=== PATIENT | female | born 1960 | race Hispanic/Latino ===

== ENCOUNTER 2018-06-21 11:57 | Emergency (ER) | payer BC ==
[2018-06-21] MEDS ORDERED: LABETALOL HCL 5 MG/ML 20ML VIAL IV ONE (12:46)
[2018-06-21 13:05] LABS: APPEARANCE,URINE Clear (CLEAR); BILIRUBIN,URINE Negative (NEGATIVE); COLOR,URINE Yellow (YELLOW); GLUCOSE, URINE (UA) >=1000 mg/dL (NEGATIVE); KETONES,URINE Negative (NEGATIVE); LEUKOCYTE ESTERASE ,URINE Negative (NEGATIVE); NITRATE,URINE Negative (NEGATIVE); OCCULT BLOOD,URINE Moderate (NEGATIVE); PH,URINE 5.5 (5.0-8.0); PROTEIN,URINE 300 (NEGATIVE); UROBILINOGEN,URINE 0.2 mg/dL (0.2-1.0)
[2018-06-21 13:06] LABS: BASOPHILS % (AUTO) 1.1 % (0.0-5.0); EOSINOPHILS % (AUTO) 1.8 % (0.0-8.0); HEMATOCRIT 38.6 % (36-48); LYMPHOCYTES % (AUTO) 34.2 % (21.0-51.0); MEAN CORPUSCULAR HEMOGLOBIN 29.3 pg (27.0-33.0); MEAN CORPUSCULAR HGB CONC 34.6 g/dL (32.0-36.0); MEAN CORPUSCULAR VOLUME 84.6 fL (79-99); MONOCYTES % (AUTO) 4.9 % (3.0-13.0); NUCLEATED RED BLOOD CELLS 0.1 % (0.0-0.19); PLATELET COUNT (AUTO) 292 K/uL (130-400); RED BLOOD CELL COUNT(AUTO) 4.56 MIL/uL (4.00-5.50); RED CELL DISTRIBUTION WIDTH 13.6 % (11.0-15.5); WHITE BLOOD COUNT (AUTO) 6.9 K/uL (4.8-10.8)
[2018-06-21 13:18] LABS: CREATININE 1.1 mg/dL (0.5-1.5); POTASSIUM 4.2 mmol/L (3.5-5.1)
[2018-06-21 13:24] LABS: BACTERIA,URINE Many /HPF (None Seen); RBC,URINE 0-1 /HPF (0-1); SQUAMOUS EPITHELIAL CELL,UR Rare /HPF (0-2); WBC,URINE 26-50 /HPF (0-1)
[2018-06-21 13:25] LABS: ALBUMIN 3.3 g/dL (3.5-5.0); BILIRUBIN,TOTAL 0.5 mg/dL (0.2-1.0); TOTAL PROTEIN, SERUM 7.4 g/dL (6.0-8.3)
[2018-06-21 13:35] LABS: INR 0.89 (0.85-1.15); PARTIAL THROMBOPLASTIN TIME 27.1 SEC (26.3-35.5); PROTHROMBIN TIME 9.4 SEC (9.6-11.6)
== END 2018-06-21 14:20 | disposition home or self-care (01) ==
LOC: EDH 11:57
DX: I10 Essential (primary) hypertension (principal); N39.0 Urinary tract infection, site not specified; E11.9 Type 2 diabetes mellitus without complications; R79.1 Abnormal coagulation profile; Z87.891 Personal history of nicotine dependence
CPT/HCPCS: 36415; 80053; 81001; 82550; 84484; 85025; 85610; 85730; 93005; 96374; 99285; J3490

== ENCOUNTER 2019-02-16 19:54 | Observation (INO) | payer BC ==
[2019-02-16 20:24] LABS: BASOPHILS % (AUTO) 0.9 % (0.0-5.0); EOSINOPHILS % (AUTO) 1.4 % (0.0-8.0); HEMATOCRIT 34.6 % (36-48); LYMPHOCYTES % (AUTO) 35.9 % (21.0-51.0); MEAN CORPUSCULAR HEMOGLOBIN 29.3 pg (27.0-33.0); MONOCYTES % (AUTO) 5.9 % (3.0-13.0); NEUTROPHILS % (AUTO) 55.9 % (40.0-77.0); PLATELET COUNT (AUTO) 305 K/uL (130-400); RED BLOOD CELL COUNT(AUTO) 4.02 MIL/uL (4.00-5.50); RED CELL DISTRIBUTION WIDTH 13.1 % (11.0-15.5)
[2019-02-16 20:37] LABS: INR 0.92 (0.85-1.15); PARTIAL THROMBOPLASTIN TIME 26.1 SEC (26.3-35.5); PROTHROMBIN TIME 9.7 SEC (9.6-11.6)
[2019-02-16 20:38] LABS: ALBUMIN 3.6 g/dL (3.5-5.0); BILIRUBIN,TOTAL 0.4 mg/dL (0.2-1.0); CREATININE 1.8 mg/dL (0.5-1.5); POTASSIUM 4.7 mmol/L (3.5-5.1); TOTAL PROTEIN, SERUM 7.4 g/dL (6.0-8.3)
[2019-02-16] MEDS ORDERED: SODIUM CHLORIDE 0.9% 1000ML 1,000 ML IV ONE (21:17)
[2019-02-16] MEDS ORDERED: INSULIN HUMULIN R 100 UNIT/ML 3ML ONE (21:19)
[2019-02-17 05:24] LABS: APPEARANCE,URINE Cloudy (CLEAR); BILIRUBIN,URINE Negative (NEGATIVE); COLOR,URINE Yellow (YELLOW); GLUCOSE, URINE (UA) >=1000 mg/dL (NEGATIVE); KETONES,URINE Negative (NEGATIVE); LEUKOCYTE ESTERASE ,URINE Trace (NEGATIVE); NITRATE,URINE Negative (NEGATIVE); OCCULT BLOOD,URINE Trace (NEGATIVE); PROTEIN,URINE POS 2+ mg/dL (NEGATIVE); UROBILINOGEN,URINE 0.2 mg/dL (0.2-1.0)
[2019-02-17 06:22] LABS: BACTERIA,URINE Many /HPF (None Seen); YEAST,URINE BUDDING Moderate /HPF (None Seen)
[2019-02-17 07:15] VITALS: BP 130/73
[2019-02-17] MEDS ORDERED: SODIUM CHLORIDE 0.9% 1000ML 1,000 ML IV SCH (08:00)
[2019-02-17] MEDS: CEFTRIAXONE SODIUM 1 GM IVP SCH (08:15)
[2019-02-17] MEDS ORDERED: CEFTRIAXONE SODIUM 1 GM ONE (08:29)
[2019-02-17] MEDS ORDERED: SODIUM CHLORIDE 0.9% 50 ML IV ONE (08:30)
[2019-02-17] MEDS ORDERED: SODIUM CHLORIDE 0.9% 1000ML 1,000 ML IV ONE (08:30)
[2019-02-17] MEDS ORDERED: INSULIN HUMULIN R 100 UNIT/ML 3ML ONE ×2 (08:43→12:48)
[2019-02-17] MEDS: INSULIN R PO SS1 SQ SCH ×3 (11:30→22:01)
--- NOTE | 2019-02-17 11:46 | NUR ---
HELENE Suazo met with pt and her grand daughter. Pt's daughter Laura lives with her. Son Jaret Ghosh [phone] is ER contact. pt works for [employer], independent, uses shower chair, patricia in home care services. Pt of Dr Krause has rx coverage. Denies dc needs, plan [place] Addendum: 02/17/19 at 1209 by KENDALL ALONSO Amended: Links added.
[2019-02-17] MEDS ORDERED: LOSA1TAB54 PO (17:36)
[2019-02-17 20:00] VITALS: BP 125/68
[2019-02-17] MEDS: FLUCONAZOLE 100 MG TAB PO SCH (21:28)
[2019-02-17 21:49] LABS: CREATININE 1.5 mg/dL (0.5-1.5)
[2019-02-18] VITALS: BP 115/68
[2019-02-18 04:00] VITALS: BP 110/63
[2019-02-18] MEDS: INSULIN R PO SS1 SQ SCH (06:19)
[2019-02-18] MEDS: CEFTRIAXONE SODIUM 1 GM IVP SCH (09:28)
[2019-02-18] MEDS: FLUCONAZOLE 100 MG TAB PO SCH (09:28)
--- NOTE | 2019-02-18 09:50 | NUR ---
INSTRUCTIONS DISCHARGE INSTRUCTIONS GIVEN TO PATIENT AND FAMILY USING TEACH BACK. NEW PRESCRIPTIONS PLACED IN PACKET ALONG WITH ALL PRINTED INFORMATION AND MD INSTRUCTIONS. IV REMOVED WITH TIP INTACT. DIRECT PRESSURE APPLIED UNTIL BLEEDING CONTROLLED THEN SITE COVERED WITH GAUZE AND SECURED WITH TAPE. F/U APPOINTMENT MADE. NO QUESTIONS OR CONCERNS VOICED.
== END 2019-02-18 09:52 | disposition home or self-care (01) ==
LOC: EDH 19:54 → EDHIP 02-17 07:00 → UNDOADMOB 02-17 07:00 → EDHIP 02-17 14:58 → 3CH 02-17 14:58 → EDHIP 02-17 19:00 → UNDODISOB 02-18 09:52
PROVIDERS: ADMIT Internal Medicine; ATTEND Internal Medicine
DX: G93.41 Metabolic encephalopathy (principal); I10 Essential (primary) hypertension; N39.0 Urinary tract infection, site not specified; E11.65 Type 2 diabetes mellitus with hyperglycemia; Z91.14 Patient's other noncompliance with medication regimen; Z79.4 Long term (current) use of insulin
CPT/HCPCS: 36415 ×2; 70450; 80048; 80053; 81001; 82550; 82948 ×5; 84484; 85025; 85610; 85730; 93005; 96372; 96374; 99284; G0378 ×15; J0696 ×2; J1815 ×5; J7030 ×2

== ENCOUNTER 2020-02-14 17:21 | Emergency (ER) | payer BC, OTHER ==
[~2020-02-14 17:21] MED LIST: LOSA1TAB54 PO
[2020-02-14] MEDS ORDERED: ACETAMINOPHEN 325 MG TAB ONE (17:47)
== END 2020-02-14 19:53 | disposition home or self-care (01) ==
LOC: EDH 17:21
DX: S83.8X1A Sprain of other specified parts of right knee, initial encounter (principal); S93.401A Sprain of unspecified ligament of right ankle, initial encounter; E11.9 Type 2 diabetes mellitus without complications; I10 Essential (primary) hypertension; Z90.49 Acquired absence of other specified parts of digestive tract; W18.39XA Other fall on same level, initial encounter; Y93.01 Activity, walking, marching and hiking; Y92.89 Other specified places as the place of occurrence of the external cause; Y99.8 Other external cause status
CPT/HCPCS: 73562; 73610

== ENCOUNTER 2020-10-12 21:35 | Inpatient (IN) | payer OTHER ==
[~2020-10-12] VITALS: Ht 167.6 cm; Wt 88.0 kg
[2020-10-12] MEDS ORDERED: LABETALOL 20 MG/4 ML DISP.SYRIN IV ONE ×2 (22:12→22:45)
[2020-10-12 22:15] LABS: BASOPHILS % (AUTO) 0.7 % (0.0-5.0); EOSINOPHILS % (AUTO) 1.8 % (0.0-8.0); HEMATOCRIT 34.6 % (36-48); LYMPHOCYTES % (AUTO) 38.4 % (21.0-51.0); MEAN CORPUSCULAR HEMOGLOBIN 26.8 pg (27.0-33.0); MEAN CORPUSCULAR HGB CONC 31.8 g/dL (32.0-36.0); MEAN CORPUSCULAR VOLUME 84.4 fL (79-99); MONOCYTES % (AUTO) 4.9 % (3.0-13.0); NEUTROPHILS % (AUTO) 53.9 % (40.0-77.0); PLATELET COUNT (AUTO) 393 K/uL (130-400); RED CELL DISTRIBUTION WIDTH 12.5 % (11.0-15.5); WHITE BLOOD COUNT (AUTO) 9.9 K/uL (4.8-10.8)
[2020-10-12 22:24] LABS: POTASSIUM 4.6 mmol/L (3.5-5.1)
[2020-10-12 22:29] LABS: ALBUMIN 2.8 g/dL (3.5-5.0); BILIRUBIN,TOTAL 0.2 mg/dL (0.2-1.0); TOTAL PROTEIN, SERUM 7.3 g/dL (6.0-8.3)
[2020-10-13 00:03] LABS: APPEARANCE,URINE Cloudy (CLEAR); BILIRUBIN,URINE Negative (NEGATIVE); COLOR,URINE Yellow (YELLOW); GLUCOSE, URINE (UA) 500 mg/dL (NEGATIVE); KETONES,URINE Negative (NEGATIVE); LEUKOCYTE ESTERASE ,URINE Small (NEGATIVE); NITRATE,URINE Positive (NEGATIVE); OCCULT BLOOD,URINE Small (NEGATIVE); PH,URINE 6.5 (5.0-8.0); PROTEIN,URINE >=1000 mg/dL (NEGATIVE); UROBILINOGEN,URINE 0.2 mg/dL (0.2-1.0)
[2020-10-13] MEDS ORDERED: ONDANSETRON HCL 4 MG/2 ML VIAL IV PRN (00:15)
[2020-10-13] MEDS ORDERED: VANCOMYCIN 1GM+NS 250ML 250 ML IV SCH (00:15)
[2020-10-13] MEDS ORDERED: LACTULOSE 20 GM/30 ML UDCUP PO PRN (00:15)
[2020-10-13] MEDS ORDERED: CEFAZOLIN SODIUM 1 GM VIAL IVP SCH (00:15)
[2020-10-13] MEDS ORDERED: VANCOMYCIN PROTOCOL PER PHARMACY IV PRN (00:15)
[2020-10-13] MEDS ORDERED: ACETAMINOPHEN 325 MG TAB PO PRN ×2 (00:15)
[2020-10-13] MEDS ORDERED: NITROGLYCERIN 1GM/1 INCH PACKET TD SCH (00:15)
[2020-10-13] MEDS ORDERED: SODIUM CHLORIDE 0.9% 1000ML 1,000 ML IV SCH (00:15)
[2020-10-13] MEDS ORDERED: LABETALOL 20 MG/4 ML DISP.SYRIN IV PRN (00:15)
[2020-10-13 00:19] LABS: BACTERIA,URINE Many /HPF (None Seen); MUCUS,URINE Rare LPF (None Seen); SQUAMOUS EPITHELIAL CELL,UR Moderate /HPF (0-2); YEAST,URINE BUDDING None Seen /HPF (None Seen)
[2020-10-13 00:58] LABS: HEMOGLOBIN A1C 10.4 % (4.0-6.0)
[2020-10-13] MEDS ORDERED: CEFAZOLIN SODIUM 1 GM VIAL ONE ×3 (01:04→16:14)
[2020-10-13] MEDS ORDERED: VANCOMYCIN 1GM+NS 250ML 250 ML IV ONE (01:05)
[2020-10-13] MEDS ORDERED: NITROGLYCERIN 1GM/1 INCH PACKET TD ONE ×3 (01:05→16:15)
[2020-10-13] MEDS ORDERED: SODIUM CHLORIDE 0.9% 1000ML 1,000 ML IV ONE (04:22)
[2020-10-13] MEDS: INSULIN LISPRO 100 UNIT/ML 3ML SQ SCH ×2 (07:30→11:30)
[2020-10-13] MEDS ORDERED: ENOXAPARIN SODIUM 40 MG/0.4 ML SYRINGE SQ ONE ×2 (08:13→12:47)
[2020-10-13] MEDS ORDERED: ASPIRIN 81MG TAB.CHEW ONE (08:13)
[2020-10-13] MEDS ORDERED: FAMOTIDINE/PF 20 MG/2 ML VIAL IV ONE ×3 (08:14→19:48)
[2020-10-13] MEDS ORDERED: METOPROLOL TARTRATE 25 MG TAB ONE ×3 (08:29→19:47)
[2020-10-13] MEDS: FAMOTIDINE/PF 20 MG/2 ML VIAL IV SCH (09:00)
[2020-10-13] MEDS: METOPROLOL TARTRATE 25 MG TAB PO SCH (09:00)
[2020-10-13] MEDS: ENOXAPARIN SODIUM 40 MG/0.4 ML SYRINGE SQ SCH (09:00)
[2020-10-13] MEDS: NIFEDIPINE 10 MG CAP PO SCH ×2 (09:00→13:00)
[2020-10-13] MEDS ORDERED: ASPIRIN 325 MG TABLET PO SCH (09:00)
[2020-10-13] MEDS ORDERED: NIFEDIPINE 10 MG CAP ONE ×2 (11:07→18:49)
[2020-10-13] MEDS ORDERED: ASCORBIC ACID 500 MG TAB ONE (12:46)
[2020-10-13] MEDS ORDERED: ERGOCALCIFEROL (VITAMIN D2) 50,000 UNIT CAPSULE ONE (12:46)
[2020-10-13] MEDS ORDERED: ZINC SULFATE 220 CAPSULE ONE (12:46)
[2020-10-13] MEDS ORDERED: CEFTRIAXONE SODIUM 1 GM ONE (12:47)
[2020-10-13] MEDS ORDERED: DOXYCYCLINE 100MG+NS 250ML 250 ML IV ONE (12:47)
[2020-10-13] MEDS ORDERED: INSULIN HUMULIN R 100 UNIT/ML 3ML ONE (12:48)
[2020-10-13] MEDS ORDERED: COMPOUND IV REFRIGERATED 1 EACH IVSOLN MISC PRN (14:30)
[2020-10-13] MEDS ORDERED: VANCOMYCIN 750MG + NS 250 ML IV SCH ×2 (15:00)
[2020-10-13] MEDS: INSULIN GLARGINE 100 UNITS/ML 10 ML VIAL SQ SCH (21:00)
[2020-10-14] MEDS ORDERED: CEFTRIAXONE SODIUM 1 GM IVP SCH (08:00)
[2020-10-14] MEDS: MEROPENEM 500 MG VIAL IVP SCH ×3 (08:30→23:10)
[2020-10-14] MEDS ORDERED: ENOXAPARIN SODIUM 40 MG/0.4 ML SYRINGE SQ ONE (08:59)
[2020-10-14] MEDS ORDERED: MEROPENEM 1 GM VIAL ONE (08:59)
[2020-10-14] MEDS ORDERED: FAMOTIDINE/PF 20 MG/2 ML VIAL IV ONE (09:00)
[2020-10-14] MEDS: NIFEDIPINE 10 MG CAP PO SCH ×2 (09:00→14:15)
[2020-10-14] MEDS: METOPROLOL TARTRATE 25 MG TAB PO SCH (09:00)
[2020-10-14] MEDS: ENOXAPARIN SODIUM 40 MG/0.4 ML SYRINGE SQ SCH (09:00)
[2020-10-14] MEDS: FAMOTIDINE/PF 20 MG/2 ML VIAL IV SCH ×2 (09:00→20:38)
[2020-10-14] MEDS ORDERED: METOPROLOL TARTRATE 25 MG TAB ONE (09:00)
[2020-10-14] MEDS ORDERED: NIFEDIPINE 10 MG CAP ONE (09:37)
[2020-10-14] MEDS ORDERED: NEOMY SULF/BACITRA/POLYMYXIN B 1 EACH PACKET TP ONE (10:00)
[2020-10-14 10:44] LABS: BASOPHILS % (AUTO) 0.7 % (0.0-5.0); EOSINOPHILS % (AUTO) 1.5 % (0.0-8.0); HEMATOCRIT 34.3 % (36-48); LYMPHOCYTES % (AUTO) 20.2 % (21.0-51.0); MEAN CORPUSCULAR HEMOGLOBIN 27.3 pg (27.0-33.0); MEAN CORPUSCULAR HGB CONC 32.4 g/dL (32.0-36.0); MEAN CORPUSCULAR VOLUME 84.5 fL (79-99); MONOCYTES % (AUTO) 3.8 % (3.0-13.0); NEUTROPHILS % (AUTO) 73.6 % (40.0-77.0); PLATELET COUNT (AUTO) 373 K/uL (130-400); RED BLOOD CELL COUNT(AUTO) 4.06 MIL/uL (4.00-5.50); RED CELL DISTRIBUTION WIDTH 12.6 % (11.0-15.5); WHITE BLOOD COUNT (AUTO) 8.2 K/uL (4.8-10.8)
[2020-10-14 10:59] LABS: CREATININE 1.9 mg/dL (0.5-1.5); POTASSIUM 4.4 mmol/L (3.5-5.1)
[2020-10-14] MEDS: INSULIN LISPRO 100 UNIT/ML 3ML SQ SCH ×2 (11:30→16:33)
[2020-10-14 11:53] VITALS: BP 148/80
[2020-10-14] MEDS: HONEY 1 APPL/ML TUBE TP SCH (15:30)
[2020-10-14 15:49] VITALS: BP 95/52
[2020-10-14 19:30] VITALS: BP 133/73
[2020-10-14] MEDS: INSULIN GLARGINE 100 UNITS/ML 10 ML VIAL SQ SCH (20:39)
[2020-10-15] VITALS (7 sets, daily range): BP systolic 141–165; BP diastolic 75–88
[2020-10-15] MEDS: INSULIN LISPRO 100 UNIT/ML 3ML SQ SCH ×3 (05:43→16:44)
[2020-10-15 05:52] LABS: BASOPHILS % (AUTO) 0.9 % (0.0-5.0); EOSINOPHILS % (AUTO) 1.9 % (0.0-8.0); HEMATOCRIT 30.3 % (36-48); LYMPHOCYTES % (AUTO) 35.2 % (21.0-51.0); MEAN CORPUSCULAR HEMOGLOBIN 27.3 pg (27.0-33.0); MEAN CORPUSCULAR HGB CONC 32.3 g/dL (32.0-36.0); MEAN CORPUSCULAR VOLUME 84.4 fL (79-99); MONOCYTES % (AUTO) 6.3 % (3.0-13.0); NEUTROPHILS % (AUTO) 55.5 % (40.0-77.0); PLATELET COUNT (AUTO) 350 K/uL (130-400); RED BLOOD CELL COUNT(AUTO) 3.59 MIL/uL (4.00-5.50); RED CELL DISTRIBUTION WIDTH 12.7 % (11.0-15.5); WHITE BLOOD COUNT (AUTO) 8.1 K/uL (4.8-10.8)
[2020-10-15 06:04] LABS: CREATININE 1.8 mg/dL (0.5-1.5); POTASSIUM 4.5 mmol/L (3.5-5.1)
[2020-10-15 08:20] LABS: INR 0.98 (0.85-1.15); PROTHROMBIN TIME 10.7 SEC (9.6-11.6)
[2020-10-15 08:21] LABS: PARTIAL THROMBOPLASTIN TIME 26.7 SEC (26.3-35.5)
[2020-10-15] MEDS: FAMOTIDINE/PF 20 MG/2 ML VIAL IV SCH ×2 (09:37→21:33)
[2020-10-15] MEDS: MEROPENEM 500 MG VIAL IVP SCH ×2 (09:37→16:43)
[2020-10-15] MEDS: ENOXAPARIN SODIUM 40 MG/0.4 ML SYRINGE SQ SCH (09:38)
[2020-10-15] MEDS: NIFEDIPINE 10 MG CAP PO SCH (09:38)
[2020-10-15] MEDS: HONEY 1 APPL/ML TUBE TP SCH (09:39)
[2020-10-15] MEDS: INSULIN GLARGINE 100 UNITS/ML 10 ML VIAL SQ SCH (21:35)
[2020-10-16] MEDS: MEROPENEM 500 MG VIAL IVP SCH ×3 (00:25→16:56)
[2020-10-16 03:34] VITALS: BP 160/80
[2020-10-16 06:02] LABS: BASOPHILS % (AUTO) 0.7 % (0.0-5.0); EOSINOPHILS % (AUTO) 2.1 % (0.0-8.0); HEMATOCRIT 30.4 % (36-48); MEAN CORPUSCULAR HGB CONC 31.6 g/dL (32.0-36.0); MEAN CORPUSCULAR VOLUME 85.6 fL (79-99); MONOCYTES % (AUTO) 6.9 % (3.0-13.0); NEUTROPHILS % (AUTO) 57.9 % (40.0-77.0); PLATELET COUNT (AUTO) 330 K/uL (130-400); RED BLOOD CELL COUNT(AUTO) 3.55 MIL/uL (4.00-5.50); RED CELL DISTRIBUTION WIDTH 12.5 % (11.0-15.5)
[2020-10-16 06:18] LABS: CREATININE 1.9 mg/dL (0.5-1.5); POTASSIUM 5.2 mmol/L (3.5-5.1)
[2020-10-16] MEDS: INSULIN LISPRO 100 UNIT/ML 3ML SQ SCH ×3 (06:39→16:57)
[2020-10-16 08:20] VITALS: BP 189/98
[2020-10-16] MEDS: ENOXAPARIN SODIUM 40 MG/0.4 ML SYRINGE SQ SCH (09:20)
[2020-10-16] MEDS: FAMOTIDINE/PF 20 MG/2 ML VIAL IV SCH ×2 (09:20→20:18)
[2020-10-16] MEDS: NIFEDIPINE 10 MG CAP PO SCH (09:20)
[2020-10-16] MEDS: HONEY 1 APPL/ML TUBE TP SCH (09:21)
[2020-10-16 11:26] VITALS: BP 139/72
[2020-10-16 16:00] VITALS: BP 151/87
[2020-10-16 19:36] VITALS: BP 132/74
[2020-10-16] MEDS: INSULIN GLARGINE 100 UNITS/ML 10 ML VIAL SQ SCH (21:00)
[2020-10-16 23:52] VITALS: BP 133/59
[2020-10-17] MEDS: MEROPENEM 500 MG VIAL IVP SCH ×2 (00:14→09:39)
[2020-10-17 04:06] VITALS: BP 145/78
[2020-10-17 04:50] LABS: BASOPHILS % (AUTO) 0.9 % (0.0-5.0); EOSINOPHILS % (AUTO) 2.5 % (0.0-8.0); HEMATOCRIT 32.4 % (36-48); LYMPHOCYTES % (AUTO) 41.4 % (21.0-51.0); MEAN CORPUSCULAR HGB CONC 31.8 g/dL (32.0-36.0); MONOCYTES % (AUTO) 7.4 % (3.0-13.0); NEUTROPHILS % (AUTO) 47.4 % (40.0-77.0); PLATELET COUNT (AUTO) 355 K/uL (130-400); RED BLOOD CELL COUNT(AUTO) 3.81 MIL/uL (4.00-5.50); RED CELL DISTRIBUTION WIDTH 12.8 % (11.0-15.5); WHITE BLOOD COUNT (AUTO) 8.1 K/uL (4.8-10.8)
[2020-10-17 05:06] LABS: CREATININE 1.8 mg/dL (0.5-1.5); POTASSIUM 4.9 mmol/L (3.5-5.1)
[2020-10-17] MEDS: INSULIN LISPRO 100 UNIT/ML 3ML SQ SCH ×2 (06:34→11:58)
[2020-10-17 08:00] VITALS: BP 149/80
[2020-10-17] MEDS: FAMOTIDINE/PF 20 MG/2 ML VIAL IV SCH (09:39)
[2020-10-17] MEDS: NIFEDIPINE 10 MG CAP PO SCH (09:40)
[2020-10-17] MEDS: ENOXAPARIN SODIUM 40 MG/0.4 ML SYRINGE SQ SCH (09:41)
[2020-10-17] MEDS: HONEY 1 APPL/ML TUBE TP SCH (09:47)
[2020-10-17 12:06] VITALS: BP 160/90
[2020-10-17] MEDS ORDERED: LEVO500T89 PO (15:54)
[2020-10-17] MEDS ORDERED: NIFE10 PO (15:54)
[2020-10-17 16:00] VITALS: BP 128/95
[2020-10-17] MEDS ORDERED: HONE44PA TP (16:21)
== END 2020-10-17 18:44 | disposition home or self-care (01) | DRG 300 ==
LOC: EDH 21:35 → EDHIP 21:36 → 4DH 10-14 11:52
PROVIDERS: ADMIT Internal Medicine; ATTEND Internal Medicine
DX: E11.51 Type 2 diabetes mellitus with diabetic peripheral angiopathy without gangrene (principal); I16.1 Hypertensive emergency; N39.0 Urinary tract infection, site not specified; Z16.24 Resistance to multiple antibiotics; L03.90 Cellulitis, unspecified; N17.9 Acute kidney failure, unspecified; N18.4 Chronic kidney disease, stage 4 (severe); E11.621 Type 2 diabetes mellitus with foot ulcer; E11.65 Type 2 diabetes mellitus with hyperglycemia; N18.30 Chronic kidney disease, stage 3 unspecified; E11.21 Type 2 diabetes mellitus with diabetic nephropathy; L97.519 Non-pressure chronic ulcer of other part of right foot with unspecified severity; I10 Essential (primary) hypertension; E78.5 Hyperlipidemia, unspecified; I45.10 Unspecified right bundle-branch block; I25.10 Atherosclerotic heart disease of native coronary artery without angina pectoris; E11.22 Type 2 diabetes mellitus with diabetic chronic kidney disease; H54.8 Legal blindness, as defined in USA; E11.40 Type 2 diabetes mellitus with diabetic neuropathy, unspecified; B96.20 Unspecified Escherichia coli [E. coli] as the cause of diseases classified elsewhere; Z79.4 Long term (current) use of insulin; Z79.899 Other long term (current) drug therapy; Z91.14 Patient's other noncompliance with medication regimen; Z91.19 Patient's noncompliance with other medical treatment and regimen; Z82.5 Family history of asthma and other chronic lower respiratory diseases; Z83.3 Family history of diabetes mellitus; Z82.49 Family history of ischemic heart disease and other diseases of the circulatory system
CPT/HCPCS: 36415; 73630; 73718; 80048; 80053; 81001; 82948; 83036; 84132; 84145; 84484; 85025; 85610; 85651; 85730; 86140; 87077; 87088; 87186; 93005; 93925; 97039; G0378; J0690; J0696; J1650; J1815; J2185; J3370; J3490; J7030; J7050

== ENCOUNTER 2021-04-15 12:33 | Emergency (ER) | payer OTHER ==
[~2021-04-15] VITALS: Ht 167.6 cm; Wt 83.5 kg
[~2021-04-15 12:33] MED LIST changes: +HONE44PA TP; +LEVO500T89 PO; -LOSA1TAB54 PO; +NIFE10 PO
[2021-04-15 12:55] VITALS: BP 214/107
[2021-04-15] MEDS ORDERED: LABETALOL 20MG VIAL IV ONE ×2 (13:30→16:00)
[2021-04-15 13:32] LABS: BASOPHILS % (AUTO) 0.7 % (0.0-5.0); EOSINOPHILS % (AUTO) 0.9 % (0.0-8.0); HEMATOCRIT 35.7 % (36-48); LYMPHOCYTES % (AUTO) 24.2 % (21.0-51.0); MEAN CORPUSCULAR HEMOGLOBIN 27.5 pg (27.0-33.0); MEAN CORPUSCULAR HGB CONC 31.9 g/dL (32.0-36.0); MONOCYTES % (AUTO) 5.6 % (3.0-13.0); NEUTROPHILS % (AUTO) 68.3 % (40.0-77.0); PLATELET COUNT (AUTO) 294 K/uL (130-400); RED BLOOD CELL COUNT(AUTO) 4.15 MIL/uL (4.00-5.50); RED CELL DISTRIBUTION WIDTH 13.6 % (11.0-15.5); WHITE BLOOD COUNT (AUTO) 8.6 K/uL (4.8-10.8)
[2021-04-15 13:46] LABS: CREATININE 2.1 mg/dL (0.5-1.5); POTASSIUM 5.2 mmol/L (3.5-5.1)
[2021-04-15 13:55] LABS: ALBUMIN 2.9 g/dL (3.5-5.0); BILIRUBIN,TOTAL 0.4 mg/dL (0.2-1.0); CRP QUANTITATIVE 8.9 mg/L (0.00-9.0)
[2021-04-15 14:00] LABS: B-TYPE NATRIURETIC PEPTIDE 81 pg/mL (0-100)
[2021-04-15] MEDS ORDERED: KAYEXALATE 15GM/60ML PO ONE (14:30)
[2021-04-15 14:40] VITALS: BP 171/86
[2021-04-15 14:51] VITALS: BP 181/82
[2021-04-15] MEDS ORDERED: LOSA1TAB42 PO (16:48)
[2021-04-15 17:01] VITALS: BP 166/82
[2021-04-15] MEDS ORDERED: LORAZEPAM 1 MG TABLET PO ONE (17:30)
== END 2021-04-15 17:30 | disposition home or self-care (01) ==
LOC: EDH 12:33
DX: I10 Essential (primary) hypertension (principal); E11.65 Type 2 diabetes mellitus with hyperglycemia; G62.9 Polyneuropathy, unspecified; Z79.899 Other long term (current) drug therapy
CPT/HCPCS: 36415; 71045; 80053; 83880; 84484; 85025; 86140; 93005; 96374; 96376; 99285; J3490